=== PATIENT | male | born 1960 | race Caucasian/White ===

== ENCOUNTER → 2017-05-04 | Outpatient (CLI) | payer BC ==
--- NOTE | 2017-05-04 13:56 | MR ---
MRI CERVICAL SPINE: CLINICAL HISTORY: Neck pain and stiffness causing bilateral arm weakness and numbness in right hand f or 9 months per patient. Cervical spondylosis with myelopathy per order. TECHNIQUE: Multiplanar, multisequence imaging of the cervical spine is performed without IV contrast. COMPARISON: None. FINDINGS: Sagittal images of the cervical spine show the craniocervical junction to appear within nor mal limits. The cervical and upper thoracic spinal cord is normal in course, caliber, and signal. V ertebral alignment is anatomic. The vertebral body heights are normal. There is moderate multilevel disc space narrowing C3-C4 through C6-C7 levels. No large posterior disc herniations are seen on sagi ttal images. There is heterogeneity of bone marrow signal intensity with multilevel endplate changes present. Mild multilevel anterior spurring is seen most prominent C5-C6 level. Axial images show the C2-C3 level to appear within normal limits. Axial images C3-C4 level show broad-based posterior disc protrusion mildly effacing anterior thecal s ac and causing [id number] bilateral neural foraminal narrowing. Axial images C4-C5 level shows right paracentral/foraminal spur disc complex effacing anterolateral t hecal sac and causing advanced right-sided neural foraminal narrowing. There is mild to moderate left -sided neural foraminal narrowing due to marginal spurring. Axial images at C5-C6 level show broad-based left paracentral disc protrusion effacing anterolateral thecal sac on axial image 24. There is marginal spurring contributing to moderate bilateral neural fo raminal narrowing at this level. Axial images at C6-C7 level show posterior spur disc complex effacing anterior thecal sac with modera te bilateral neural foraminal narrowing present. Axial images at C7-T1 level show broad-based posterior disc protrusion effacing anterior thecal sac w ith moderate right greater than left neural foraminal narrowing appreciated. Some left-sided blooming artifact of posterior lateral elements is noted of uncertain etiology. IMPRESSION: Multilevel degenerative changes in the cervical spine as detailed above.
== END | disposition home or self-care (01) ==
LOC: RADMRIMAIN 12:55
PROVIDERS: ATTEND Orthopaedic Surgery
DX: M47.812 Spondylosis without myelopathy or radiculopathy, cervical region (principal)
CPT/HCPCS: 72141

== ENCOUNTER → 2018-04-30 | Outpatient (CLI) | payer BC ==
[2018-04-30 17:17] LABS: T4, Free (Free Thyroxine) 0.78 ng/dL (0.78-2.19)
[2018-05-01 02:39] LABS: Protein, Total 7.1 g/dL (6.2-8.2)
[2018-05-01 02:46] LABS: Hemoglobin A1C 5.3 % (4.0-6.0)
== END | disposition home or self-care (01) ==
LOC: LABWHC1 16:13
PROVIDERS: ATTEND Psychiatry & Neurology Neurology
DX: G62.9 Polyneuropathy, unspecified (principal)
CPT/HCPCS: 36415; 82550; 82607; 82747; 83036; 84165; 84439; 84443; 85652; 86038; 86618

== ENCOUNTER → 2024-02-14 | Outpatient (CLI) | payer MEDICARE ==
--- NOTE | 2024-02-14 14:22 | US ---
EXAMINATION TYPE: US thyroid st tissue head/neck DATE OF EXAM: 02/14/2024 COMPARISON: NONE CLINICAL INDICATION: Male, 63 years old with history of R22.1 LOCALIZED SWELLING, MASS AND LUMP, NECK ; Swelling in left neck TECHNIQUE: Multiple color and grayscale imaging was obtained. FINDINGS: Left submandibular gland, parotid, and thyroid appear to be WNL Lymph node with thickened cortex noted near Left CCA Bulb = 2.2 x 0.8 x 1.2 cm; Cortex = 0.8 cm Multiple hypoechoic areas within right submandibular gland, largest = 1.5 x 0.7 x 1.1 cm Multiple hypoechoic rounded lymph nodes noted Right Thyroid appears to be WNL IMPRESSION: Multiple hypoechoic masses in the right submandibular gland and enlarged lymph nodes. CT of the soft tissues neck with contrast is recommended for further evaluation.
== END | disposition home or self-care (01) ==
LOC: RADUSWWP 10:21
PROVIDERS: ATTEND Family Medicine
DX: K11.8 Other diseases of salivary glands (principal); R22.1 Localized swelling, mass and lump, neck
CPT/HCPCS: 76536

== ENCOUNTER → 2024-02-28 | Outpatient (CLI) | payer MEDICARE ==
--- NOTE | 2024-02-28 19:01 | CT ---
EXAMINATION TYPE: CT soft tissue neck w con CT DLP: 228.6 mGycm, Automated exposure control for dose reduction was used. DATE OF EXAM: 02/28/2024 8:48 AM COMPARISON: Ultrasound 02/14/2024.. CLINICAL INDICATION:Male, 63 years old with history of R22.1 LOCALIZED SWELLING, MASS AND LUMP, NECK; PHH, lump vs thyroid TECHNIQUE: Standard enhanced CT of the neck. Axial sections with coronal and sagittal reformats were obtained. Contrast used:100 mL of Isovue 300 with IV Contrast, (None if empty) Oral contrast used: (None if empty) FINDINGS: Brain: Visualized portions are grossly unremarkable. Orbits: Unremarkable Sinuses: Grossly unremarkable. Spaces of the neck: Clear and symmetric. No palpable marker was placed for better correlation of jayla ent's palpable abnormality. No greater than 1.0 cm short axis lymph nodes identified. Musculoskeletal: No acute osseous pathology. Lymph nodes: Multiple nonenlarged lymph nodes are seen along both anterior chains of the neck. Vascular structures: Visualized major arteries are patent without evidence of aneurysm. Thoracic Inlet/airway: Airway is patent. Paraseptal emphysema changes in the lung apices. Soft tissues/Thyroid: Thyroid and remainder of the soft tissues are unremarkable. Atrial atrophic rig ht thyroid gland and normal-appearing left thyroid gland. Other: none. IMPRESSION 1. No evidence for mass or lymphadenopathy. No greater than 1.0 cm short axis lymph nodes identified . No palpable marker was placed for correlation. 2. Mild emphysema changes.
== END ==
LOC: RADCTMAIN 08:28
PROVIDERS: ATTEND Family Medicine
DX: J43.9 Emphysema, unspecified (principal); R22.1 Localized swelling, mass and lump, neck
CPT/HCPCS: 70491; Q9967